=== PATIENT | male | born 1980 | race Caucasian/White ===

== ENCOUNTER → 2020-06-06 14:09 | Outpatient (BNVA) | payer SELFPAY | PROVIDERS: PCP Family Medicine; Visit Provider Nurse Practitioner | DX: R06.02 Shortness of breath (principal) | CPT/HCPCS: 71046 ==

== ENCOUNTER 2022-10-12 15:25 | Emergency (ER) | payer SELFPAY ==
[2022-10-12 15:29] VITALS: BP 140/48; PULSE 77; RESP 16; TEMP 36.7; O2SAT 97; BMI 31.0
--- NOTE | 2022-10-12 16:12 | USR_ITS ---
PROCEDURE INFORMATION: Exam: US Scrotum Exam date and time: 10/12/2022 4:18 PM Age: 42 years old Clinical indication: Scrotum pain; Additional info: Swelling TECHNIQUE: Imaging protocol: Real-time ultrasound of the scrotum and contents with color Doppler and image documentation. COMPARISON: No relevant prior studies available. FINDINGS: Right testicle: Normal. No mass. No torsion. Normal vascular flow. 2.2 cm x 2.6 cm x 4 Left testicle: Normal. No mass. No torsion. Normal vascular flow. 3.1 cm x 2.5 x3.5 cm Epididymides: Normal. Right epididymis 1.2 cm left 1.5 cm Scrotum/soft tissues: Normal. US/US scrotum [id number] IMPRESSION: Normal scrotal ultrasound.
[2022-10-12 16:42] LABS: Basophils # 0.1 10^3/uL (0.0-0.1); Basophils % 0.8 %; Eosinophils # 0.2 10^3/uL (0.0-0.8); Eosinophils % 2.9 %; Hematocrit 42.4 % (42.0-52.0); Hemoglobin 13.9 g/dL (11.7-16.6); Lymphocytes # 3.5 10^3/uL (0.8-4.8); Lymphocytes % 46.6 %; Mean Corpuscular HGB Conc 32.8 g/dL (30.0-36.0); Mean Corpuscular Hemoglobin 29.1 pg (28.0-34.0); Mean Corpuscular Volume 88.9 fl (80-94); Mean Platelet Volume 9.8 fL (7.4-10.4); Monocytes # 0.6 10^3/uL (0.2-0.9); Monocytes % 7.5 %; Neutrophils # 3.15 10^3/uL (1.8-7.7); Neutrophils % 41.9 %; Nucleated Red Blood Cells % 0 %; Platelet Count 229 10^3/cmm (130-400); Red Blood Count 4.77 10^6/uL (4.1-5.3); Red Cell Distribution Width 12.4 % (12.1-15.1); White Blood Count 7.5 10^3/uL (4.0-10.0)
--- NOTE | 2022-10-12 16:46 | XRR_ITS ---
PROCEDURE INFORMATION: Exam: XR Lumbosacral Spine Exam date and time: 10/12/2022 4:52 PM Age: 42 years old Clinical indication: Low back pain and sciatica; Right; Additional info: Lbp, no trauma TECHNIQUE: Imaging protocol: Radiologic exam of the lumbosacral spine. Views: 2 or 3 views. COMPARISON: scrotum [id number] 10/12/2022 4:18 PM FINDINGS: Bones/joints: Normal. No acute fracture. Normal alignment. Soft tissues: Unremarkable. XR/XR lumbar spine 2-3V* [id number] IMPRESSION: No acute findings.
--- NOTE | 2022-10-12 16:57 | W.ED.MALEGU ---
HPI - Male Genitourinary General: Chief complaint: Urogenital-Male Stated complaint: Testical Swelling Time Seen by Provider: 10/12/22 16:05 History of Present Illness: Patient is complaining of testicle pain, scrotal swelling and back pain primarily on his right side since a tipping to lift a heavy object yesterday. MD Complaint: testicle pain and testicle swelling Onset (ago): day(s) (Yesterday) Duration: constant Location: right testicle Severity: mild Quality: aching Relieving factors: none Exacerbating factors: palpation and movement Context: lifting Review of Systems General: Reports: 10 or more systems reviewed and unremarkable except in HPI and below PFSH ED PFSH: Social History Smoking and tobacco status: current every day smoker cigarettes Packs smoked per day: 1 Years cigarettes smoked: 5 Physical Exam Const: COMMON NORMALS: no acute distress, average body habitus, patient oriented x3, no limitations, healthy appearing, alert and well nourished HENMT: COMMON NORMALS: normocephalic, atraumatic, hearing grossly normal bilaterally, external ears normal, Normal external nose present and moist oral mucous membranes HEAD & SCALP: normocephalic and atraumatic NOSE: Normal external nose present EXTERNAL EAR: Yes external ears normal Eye: COMMON NORMALS: Equal, round and reactive pupils present, EOMs intact bilaterally, conjunctivae normal and no scleral icterus CONJUNCTIVA: Yes conjunctivae normal PUPIL: Yes Equal, round and reactive pupils present Neck/C-Spine: COMMON NORMALS: full ROM, no lymphadenopathy, supple, no meningeal signs, no JVD and Thyroid normal THYROID: Thyroid normal Chest: COMMONS NORMALS: normal inspection of the chest and normal palpation of entire chest wall Resp: COMMON NORMALS: normal respiratory effort, No retractions, No use of accessory muscles and clear to auscultation bilaterally AUSCULTATION: clear to auscultation bilaterally Cardio: COMMON NORMALS: no JVD, regular rhythm, S1 normal heart sound present, S2 normal heart sound present, No gallops present (Cardio), No clicks present (Cardio) and No murmurs present (Cardio) RHYTHM: regular rhythm HEART SOUNDS: S1 normal heart sound present and S2 normal heart sound present GI: COMMON NORMALS: Normal to inspection, nondistended, normoactive bowel sounds present, Soft to palpation, non-tender, No hepatosplenomegaly present and no masses PALPATION: Yes Soft to palpation and Yes No hepatosplenomegaly present : COMMON NORMALS: Yes no CVA tenderness BLADDER/KIDNEY EXAM: Yes no CVA tenderness Back/Pelvis: COMMON NORMALS: no CVA tenderness LUMBAR SPINE/LOWER BACK: Yes paraspinal muscle tenderness Lumbar paraspinal muscle tenderness: right Neuro: COMMON NORMALS: patient oriented x3 SENSORIUM/ORIENTATION: Yes alert MENINGEAL SIGNS: Yes no meningeal signs Course Vital Signs: Vital signs: Vital Signs Temperature 98.0 F 10/12/22 15:29 Pulse Rate 80 10/12/22 17:13 Respiratory Rate 14 10/12/22 17:13 Blood Pressure 108/66 10/12/22 17:13 Pulse Oximetry 97 10/12/22 17:13 Oxygen Delivery Me thod Room Air 10/12/22 17:13 MDM - Male Medical Decision Making Patient presents to the ER with complaints of low back pain and right testicular pain post lifting heavy objects yesterday. Lab work was obtained as well as ultrasound of the scrotum and lumbar spine x-rays all of which were benign. Is felt that patient had a lumbar strain. Patient was given Toradol 60 mg IM during his hospital stay. These findings was discussed with the patient patient will be discharged on meloxicam and told to follow-up with his family practice physician within the next 1 week. Differential Diagnosis Likely inguinal hernia; Unlikely urinary tract infection, priapism, urethritis, epididymitis, genital herpes simplex, prostatitis or acute retention of urine Medical Records I reviewed the patient's medical records. Lab Data I reviewed the patient's lab results. 10/12/22 16:36 10/12/22 16:36 Radiology Impressions Scrotum Ultrasound 10/12/22 16:12 IMPRESSION: Normal scrotal ultrasound. Lumbar Spine X-Ray 10/12/22 16:46 IMPRESSION: No acute findings. Laboratory Results WBC 7.5 10^3/uL (4.0-10.0) 10/12/22 16:36 RBC 4.77 10^6/uL (4.1-5.3) 10/12/22 16:36 Hgb 13.9 g/dL (11.7-16.6) 10/12/22 16:36 Hct 42.4 % (42.0-52.0) 10/12/22 16:36 MCV 88.9 fl (80-94) 10/12/22 16:36 MCH 29.1 pg (28.0-34.0) 10/12/22 16:36 MCHC 32.8 g/dL (30.0-36.0) 10/12/22 16:36 RDW 12.4 % (12.1-15.1) 10/12/22 16:36 Plt Count 229 10^3/cmm (130-400) 10/12/22 16:36 MPV 9.8 fL (7.4-10.4) 10/12/22 16:36 Neut % (Auto) 41.9 % 10/12/22 16:36 Lymph % (Auto) 46.6 % 10/12/22 16:36 [place] % (Auto) 7.5 % 10/12/22 16:36 Eos % (Auto) 2.9 % 10/12/22 16:36 Baso % (Auto) 0.8 % 10/12/22 16:36 Neut # (Auto) 3.15 10^3/uL (1.8-7.7) 10/12/22 16:36 Lymph # (Auto) 3.5 10^3/uL (0.8-4.8) 10/12/22 16:36 [place] # (Auto) 0.6 10^3/uL (0.2-0.9) 10/12/22 16:36 Eos # (Auto) 0.2 10^3/uL (0.0-0.8) 10/12/22 16:36 Baso # (Auto) 0.1 10^3/uL (0.0-0.1) 10/12/22 16:36 Nucleated RBC % (auto) 0 % 10/12/22 16:36 Nucleated RBCs # 0.0 /100WBC 10/12/22 16:36 Sodium 137 mmol/L (136-145) 10/12/22 16:36 Potassium 3.9 mmol/L (3.5-5.1) 10/12/22 16:36 Chloride 102 mmol/L (98-107) 10/12/22 16:36 Carbon Dioxide 24 mmol/L (22-29) 10/12/22 16:36 Anion Gap 14.9 (5-19) 10/12/22 16:36 BUN 13 mg/dL (6-20) 10/12/22 16:36 Creatinine 0.9 mg/dL (0.7-1.2) 10/12/22 16:36 GFR Calculation 92.5 mL/min (90-130) 10/12/22 16:36 Glucose 107 mg/dL (65-115) 10/12/22 16:36 Calculated Osmolality 285 mOsm/kg (285-295) 10/12/22 16:36 Calcium 9.0 mg/dL (8.5-10.5) 10/12/22 16:36 Total Bilirubin 0.2 mg/dL (0.15-1.2) 10/12/22 16:36 AST 19 U/L (0-40) 10/12/22 16:36 ALT 17 U/L (0-41) 10/12/22 16:36 Alkaline Phosphatase 65 U/L (40-130) 10/12/22 16:36 Total Protein 7.0 g/dL (6.6-8.7) 10/12/22 16:36 Albumin 4.2 g/dL (3.5-5.2) 10/12/22 16:36 Globulin 2.8 g/dL (1.3-4.6) 10/12/22 16:36 Urine Color Straw (Yellow) 10/12/22 16:53 Urine Appearance Clear (CLEAR) 10/12/22 16:53 Urine pH 6 (5-7) 10/12/22 16:53 Ur Specific [place] 1.015 (1.005-1.030) 10/12/22 16:53 Urine Protein Neg (Negative) 10/12/22 16:53 Urine Glucose (UA) Norm (Normal) 10/12/22 16:53 Urine Ketones Negative (Negative) 10/12/22 16:53 Urine Blood Neg (Negative) 10/12/22 16:53 Urine Nitrate Negative (Negative) 10/12/22 16:53 Urine Bilirubin Neg (Negative) 10/12/22 16:53 Urine Urobilinogen Norm mg/dL (Negative) 10/12/22 16:53 Ur Leukocyte Esterase Negative (Negative) 10/12/22 16:53 Discharge Plan Discharge Patient Disposition: Home Clinical Impression: Lumbar radiculopathy, right Condition: Stable Prescriptions: New prednisone 50 mg tablet 50 mg PO DAILY Qty: 5 0RF meloxicam 15 mg tablet 15 mg PO DAILY Qty: 7 0RF No Action albuterol sulfate [Ventolin HFA] 90 mcg/actuation HFA aerosol inhaler 2 puff inhalation QID PRN (Reason: shortness of breath or wheezing) Qty: 6.7 0RF Rx Instructions: 340b omeprazole 40 mg capsule,delayed release(DR/EC) 40 mg PO DAILY Qty: 14 0RF Rx Instructions: 340b Discharge Orders: Discharge ED (Routine); Ordered 10/12/22 Ordered By: Rashi Muhammad Referrals: Justice Cade MD [Primary Care Provider] - 1 week Patient Instructions: Lumbar Radiculopathy (ED), Lower Back Exercises (ED) Activity Restrictions/Additional Instructions: Please take your medicine as prescribed please follow-up with your primary care practitioner within 1 week especially if pain has not resolved as further testing may be needed. Coding Level of Care Code ED [employer] Support Engineer for Orlando Whitney
[2022-10-12 17:06] LABS: Alanine Aminotransferase 17 U/L (0-41); Albumin Level 4.2 g/dL (3.5-5.2); Alkaline Phosphatase 65 U/L (40-130); Anion Gap 14.9 (5-19); Aspartate Amino Transferase 19 U/L (0-40); Blood Urea Nitrogen 13 mg/dL (6-20); Carbon Dioxide 24 mmol/L (22-29); Chloride 102 mmol/L (98-107); Globulin 2.8 g/dL (1.3-4.6); Glomerular Filtration Rate 92.5 mL/min (90-130); Glucose 107 mg/dL (65-115); Osmolality Calculated 285 mOsm/kg (285-295); Potassium 3.9 mmol/L (3.5-5.1); Sodium 137 mmol/L (136-145); Total Bilirubin 0.2 mg/dL (0.15-1.2)
[2022-10-12 17:13] VITALS: BP 108/66; PULSE 80; RESP 14; O2SAT 97
[2022-10-12 17:17] LABS: Add Urine Microscopic? NO; Charge for UA Resulting for Rev
[2022-10-12] MEDS: ketorolac 60 mg/2 mL INJ IM (17:18)
[2022-10-12 17:24] LABS: Bilirubin Urine Neg (Negative); Blood Urine Neg (Negative); Glucose Urine UA Norm (Normal); Ketones Urine Negative (Negative); Leukocyte Esterase Urine Negative (Negative); Nitrate Urine Negative (Negative); Protein Urine Neg (Negative); Specific Gravity, Urine 1.015 (1.005-1.030); Urine Appearance Clear (CLEAR); Urine Color Straw (Yellow); Urobilinogen Urine Norm (Negative); pH Urine 6 (5-7)
== END 2022-10-12 17:46 | disposition home or self-care (01) ==
PROVIDERS: Emergency Provider Emergency Medicine; PCP Family Medicine
DX: M54.16 Radiculopathy, lumbar region (principal); F17.210 Nicotine dependence, cigarettes, uncomplicated
CPT/HCPCS: 36415; 72100; 76870; 80053; 81003; 85025; 96372; 99284; J1885